=== PATIENT | female | born 1990 | race American Indian/Alaskan Native ===

== ENCOUNTER 2017-08-12 16:19 | Emergency (ER) | payer SELFPAY ==
--- NOTE | 2017-08-12 16:50 | Emergency Department Report ---
Chief Complaint: Abdominal Pain Stated Complaint: ABD PAIN PREG Time Seen by Provider: 08/12/17 16:47 - HPI History of Present Illness: Patient here reports that she is 3 months and has a lot of lower abdominal pain and feels like her heart is racing. She said the pain feels like pressure and it 6 out of 10. Denies any nausea vomiting or diarrhea denies any urinary burning frequency or urgency. She said that she had a ultrasound done 2 weeks ago and it showed that the baby was in the right place. She said it also showed that she has a left ovarian cyst. She said on 1028 she passed a large clot from her vaginal area and they cannot tell her where it came from. Denies any fever or chills. - ROS Review of Systems: All systems are negative unless stated in HPI above - Exam Vital Signs: Vital Signs 08/12/17 16:35 Temperature 98.6 F Pulse Rate 78 Respiratory 16 Rate Blood Pressure 104/66 O2 Sat by Pulse 99 Oximetry Physical Exam: Gen.: This is a 26-year-old female well-nourished well-developed in no acute distress. Abdomen: Tender to palpate pelvic area, no guarding or rebound. Normal bowel sounds in all quadrants. CV: S1, S2. Regular rate rhythm negative murmur MSE screening note: Focused history and physical exam performed. Due to findings the following was ordered: ED Medical Decision Making - Medical Decision Making MDM: Patient screened by provider in triage area. Appropriate protocol initiated and patient to be seen in main ED by Dr. JACK Disposition for MSE Condition: Stable Instructions: Abdominal Pain (ED)
[2017-08-12 17:17] LABS: Bacteria,Urine 1+ /HPF (Negative); Bilirubin,Urine NEG (Negative); Blood,Urine NEG (Negative); Ketones,Urine NEG (Negative); Leukocyte Esterase,Urine NEG (Negative); Nitrite,Urine NEG (Negative); Protein,Urine <15 mg/dL mg/dL (Negative); Urobilinogen,Urine < 2.0 mg/dL (<2.0)
[2017-08-12 17:28] LABS: Basophils % (Auto) 0.4 % (0.0-1.8); Eosinophils % (Auto) 1.1 % (0.0-4.3); Hematocrit 30.3 % (30.3-42.9); Hemoglobin 9.6 gm/dl (10.1-14.3); Mean Corpuscular HGB Conc 32 % (30-34); Mean Corpuscular Hemoglobin 28 pg (28-32); Mean Corpuscular Volume 88 fl (79-97); Platelet Count 321 K/mm3 (140-440); Red Blood Count 3.43 M/mm3 (3.65-5.03); Red Cell Distribution Width 15.7 % (13.2-15.2); White Blood Count 10.8 K/mm3 (4.5-11.0)
[2017-08-12 17:47] LABS: Alanine Aminotransferase 13 units/L (7-56); Albumin 3.7 g/dL (3.9-5); Albumin/Globulin Ratio 1.1 %; Alkaline Phosphatase 40 units/L (35-129); Anion Gap 18 mmol/L; BUN/Creatinine Ratio 25; Blood Urea Nitrogen 15 mg/dL (7-17); Calcium 9.3 mg/dL (8.4-10.2); Carbon Dioxide 22 mmol/L (22-30); Chloride 98.7 mmol/L (98-107); Glucose 79 mg/dL (65-100); Lipase 39 units/L (13-60); Potassium 4.7 mmol/L (3.6-5.0); Sodium 134 mmol/L (137-145)
[2017-08-12 17:48] LABS: INR 0.95 (0.87-1.13)
[2017-08-12 17:50] LABS: Partial Thromboplastin Time 26.9 Sec. (24.2-36.6)
--- NOTE | 2017-08-12 19:00 | Ultrasound Report ---
FINAL REPORT EXAM: US OB \T\lt; = 14 WEEKS FETUS HISTORY: 39 weeks with abd pain TECHNIQUE: Ultrasound obstetrical transabdominal PRIORS: None. FINDINGS: Gestational sac is present within the uterus. There is a pole identified crown lump length 5.16 centimeters corresponding to estimated gestational age of 11 weeks 6 days with estimated date of delivery of February 24, 2018 cardiac activity is present with heart rate of 165 beats per minute. No evidence for subchorionic hemorrhage. No focal myometrial abnormality identified Right ovary is 2.5 x 1.9 x 1.6 centimeters Left ovary is 3.7 x 2.5 x 2.1 centimeters. Noted is 1.9 centimeter left ovarian cyst. No free fluid seen within the cul-de-sac IMPRESSION: Single live intrauterine gestation estimated at 5 weeks 6 days
--- NOTE | 2017-08-12 23:52 | Emergency Department Report ---
ED Female HPI - General Chief complaint: Abdominal Pain Stated complaint: ABD PAIN PREG Time Seen by Provider: 08/12/17 16:47 Source: patient Mode of arrival: Ambulatory Limitations: No Limitations - History of Present Illness Initial comments: Patient is 26 years old female 5 weeks coming with abdominal pain for the last 2 days, crampy. Denied any vaginal bleeding or vaginal discharge. No nausea no vomiting. No other complaints. MD Complaint: pelvic pain -: Gradual Quality: cramping Are you Now?: Yes (5 weeks) Associated Symptoms: abdominal pain. denies: vaginal discharge, vaginal bleeding, nausea/vomiting, fever/chills, headaches, loss of appetite, dysuria, hematuria, rash, seizure, shortness of breath, syncope, weakness - Related Data Sexually active: Yes Previous Rx's Medication Instructions Recorded Last Taken Type Azithromycin [Zithromax] 250 mg PO QDAY #6 tablet 11/20/15 Unknown Rx Fluticasone [Flonase] 1 spray NS QDAY #1 bottle 11/20/15 Unknown Rx guaiFENesin/CODEINE [Robitussin AC] 10 ml PO QHS PRN #50 ml 11/20/15 Unknown Rx methylPREDNISolone [Medrol] 4 mg PO QAM #1 tab.ds.pk 11/20/15 Unknown Rx Allergies Allergy/AdvReac Type Severity Reaction Status Date / Time No Known Allergies Allergy Verified 11/20/15 12:53 ED Review of Systems ROS: Stated complaint: ABD PAIN PREG Other details as noted in HPI Comment: All other systems reviewed and negative Constitutional: denies: chills, fever Respiratory: denies: cough, orthopnea, shortness of breath, SOB with exertion, SOB at rest Cardiovascular: denies: chest pain, palpitations, dyspnea on exertion Gastrointestinal: abdominal pain. denies: nausea, vomiting, diarrhea, constipation, hematemesis, melena, hematochezia Genitourinary: denies: urgency, dysuria, frequency Musculoskeletal: denies: back pain Neurological: denies: headache, weakness, numbness, paresthesias, abnormal gait , vertigo ED Past Medical Hx - Past Medical History Previous Medical History?: Yes Hx Hypertension: No Hx Congestive Heart Failure: No Hx Diabetes: No Hx Deep Vein Thrombosis: Yes Hx Renal Disease: No Hx Sickle Cell Disease: No Hx Seizures: No Hx Asthma: No Hx COPD: No Hx HIV: No Additional medical history: right leg dvt - Surgical History Past Surgical History?: Yes Additional Surgical History: - Social History Smoking Status: Never Smoker Substance Use Type: None - Medications Home Medications: Home Medications Medication Instructions Recorded Confirmed Last Taken Type Azithromycin [Zithromax] 250 mg PO QDAY #6 tablet 11/20/15 Unknown Rx Fluticasone [Flonase] 1 spray NS QDAY #1 bottle 11/20/15 Unknown Rx guaiFENesin/CODEINE [Robitussin AC] 10 ml PO QHS PRN #50 ml 11/20/15 Unknown Rx methylPREDNISolone [Medrol] 4 mg PO QAM #1 tab.ds.pk 11/20/15 Unknown Rx ED Physical Exam - General Limitations: No Limitations General appearance: alert, in no apparent distress - Head Head exam: Present: atraumatic, normocephalic, normal inspection - Eye Eye exam: Present: normal appearance, PERRL - ENT ENT exam: Present: normal exam, normal orophraynx, TM's normal bilaterally - Neck Neck exam: Present: normal inspection. Absent: meningismus, full ROM, lymphadenopathy - Respiratory Respiratory exam: Present: normal lung sounds bilaterally. Absent: respiratory distress, wheezes, rales, rhonchi, chest wall tenderness - Cardiovascular Cardiovascular Exam: Present: regular rate, normal rhythm, normal heart sounds - GI/Abdominal GI/Abdominal exam: Present: soft, normal bowel sounds. Absent: distended, tenderness, guarding, rebound, rigid, organomegaly, mass, bruit, pulsatile mass , hernia - Extremities Exam Extremities exam: Present: normal inspection, normal capillary refill. Absent: tenderness, pedal edema, joint swelling, calf tenderness - Back Exam Back exam: Present: normal inspection. Absent: tenderness, CVA tenderness (R), CVA tenderness (L) - Neurological Exam Neurological exam: Present: alert, oriented X3, CN II-XII intact, normal gait - Skin Skin exam: Present: warm, intact, normal color ED Course Vital Signs 08/12/17 16:35 Temperature 98.6 F Pulse Rate 78 Respiratory 16 Rate Blood Pressure 104/66 O2 Sat by Pulse 99 Oximetry ED Medical Decision Making - Lab Data Result diagrams: 08/12/17 16:55 08/12/17 16:55 - Radiology Data Radiology results: report reviewed Pelvic/ ultrasound showed 5 weeks viable, single intrauterine with no complete Critical care attestation.: If time is entered above; I have spent that time in minutes in the direct care of this critically ill patient, excluding procedure time. ED Disposition Clinical Impression: Abdominal pain affecting , UTI (urinary tract infection) Disposition: DC-01 TO HOME OR SELFCARE Is pt being admited?: No Condition: Stable Instructions: Abdominal Pain (ED), Urinary Tract Infection in Women (ED)
[2017-08-12 23:59] VITALS: BP 103/65
== END 2017-08-13 00:17 | disposition home or self-care (01) ==
LOC: ED 16:19
DX: O23.41 Unspecified infection of urinary tract in pregnancy, first trimester (principal); Z3A.01 Less than 8 weeks gestation of pregnancy
CPT/HCPCS: 36415; 76801; 80053; 81001; 83690; 84702; 85025; 85610; 85730; 86850; 86900; 86901; 99284

== ENCOUNTER 2017-10-20 16:47 | Outpatient (CLI) | payer MEDICAID ==
[2017-10-20 17:07] VITALS: BP 111/65
== END 2017-10-20 18:23 | disposition home or self-care (01) ==
LOC: TRG 16:47
PROVIDERS: ATTEND Obstetrics & Gynecology
DX: Z34.92 Encounter for supervision of normal pregnancy, unspecified, second trimester (principal); Z3A.21 21 weeks gestation of pregnancy

== ENCOUNTER 2017-11-28 16:30 | Outpatient (CLI) | payer MEDICAID ==
[2017-11-28] MEDS ORDERED: LACTATED RINGERS 500 ML IV ONE (16:54)
[2017-11-28 18:09] VITALS: BP 112/70
--- NOTE | 2017-11-28 20:07 | Ultrasound Report ---
FINAL REPORT EXAM: US OB LIMITED HISTORY: CHEMA , PROM TECHNIQUE: Limited obstetrical ultrasound PRIORS: Ultrasound OB 08/12/2017 FINDINGS: LMP 05/24/2017 clinical Age: 26 w 6 d LMP EDC 02/28/2018 Presentation: Cephalic Activity: Monitored Placenta: No evidence for placenta previa is seen. Cardiac motion: 156 BPM using M-mode doppler Amniotic Fluid Volume: Normal CHEMA 23.0 cm IMPRESSION: Single intrauterine viable with an approximate age of 26 weeks 6 days. CHEMA is 23.0 cm which is normal.
== END 2017-11-28 19:49 | disposition home or self-care (01) ==
LOC: TRG 16:30
PROVIDERS: ATTEND Obstetrics & Gynecology
DX: O47.02 False labor before 37 completed weeks of gestation, second trimester (principal); Z3A.26 26 weeks gestation of pregnancy
CPT/HCPCS: 59025; 76815

== ENCOUNTER 2018-01-03 15:57 | Outpatient (CLI) | payer MEDICAID ==
[2018-01-03 16:47] LABS: Bacteria,Urine 1+ /HPF (Negative)
[2018-01-03 16:51] LABS: Bilirubin,Urine NEG (Negative); Blood,Urine NEG (Negative); Color,Urine Straw (Yellow); Protein,Urine <15 mg/dL mg/dL (Negative); Urobilinogen,Urine < 2.0 mg/dL (<2.0)
[2018-01-03 17:55] VITALS: BP 100/58
--- NOTE | 2018-01-03 17:56 | Ultrasound Report ---
FINAL REPORT EXAM: US OB BPP WO NON-STRESS HISTORY: WELL BEING, DECREASED MOVEMENT TECHNIQUE: Biophysical profile obstetrical ultrasound PRIORS: None. FINDINGS: LMP 05/21/2017 clinical Age: 32 W 3 D LMP EDC: 02/25/2018 Biophysical profile scoring 2 movement 2 tone 2 breathing 2 fluid 8/8 overall score Presentation: Cephalic Activity: Monitored Cardiac motion: 131 BPM using M-mode doppler Amniotic Fluid Volume: Adequate IMPRESSION: Single intrauterine viable with an approximate age of 32 weeks 3 days. Biophysical profile score is. 8/8
== END 2018-01-03 16:50 | disposition home or self-care (01) ==
LOC: TRG 15:57
PROVIDERS: ATTEND Obstetrics & Gynecology
DX: O47.03 False labor before 37 completed weeks of gestation, third trimester (principal); Z3A.32 32 weeks gestation of pregnancy
CPT/HCPCS: 59025; 76819; 81001

== ENCOUNTER 2018-02-10 00:19 | Outpatient (CLI) | payer MEDICAID ==
[2018-02-09] MEDS: BRETHINE SUB-Q SCH ×2 (21:56→22:31)
[2018-02-09 22:23] VITALS: BP 117/66
[~2018-02-10 00:19] MED LIST: LACTATED RINGERS 1,000 ML IV ONE; LACTATED RINGERS 1,000 ML ONE
[2018-02-10] MEDS ORDERED: PROCARDIA*For Tocolysis only PO ONE (00:30)
== END 2018-02-10 01:54 | disposition home or self-care (01) ==
LOC: TRG 00:19 → LD 00:19 → TRG 01:54
PROVIDERS: ATTEND Obstetrics & Gynecology
DX: O47.1 False labor at or after 37 completed weeks of gestation (principal); Z3A.37 37 weeks gestation of pregnancy
CPT/HCPCS: 59025; 96360; 96361; 96372; J3105; J7120